=== PATIENT | female | born 1985 | race Caucasian/White ===

== ENCOUNTER 2016-07-25 04:20 | Emergency (ER) | payer MEDICAID ==
[~2016-07-25] VITALS: Ht 162.6 cm; Wt 90.7 kg
[2016-07-25 04:28] VITALS: BP 158/103
--- NOTE | 2016-07-25 04:40 | NUR ---
PATIENT AMBULATED TO ER BED 05
--- NOTE | 2016-07-25 04:45 | NUR ---
pt states rt back lower molar broke this am - she heard something crack hx of htn . PT DENIES N/V/D; SKIN IS PINK/WARM/DRY; AAOX4 WITH EVEN AND STEADY GAIT; LUNGS CLEAR BL; HR EVEN AND REGULAR; PT DENIES ANY FEVER, CP, SOB, OR COUGH AT THIS TIME; PATIENT STATES PAIN OF 10/10 AT THIS TIME; VSS; PATIENT POSITIONED FOR COMFORT; HOB ELEVATED; BEDRAILS UP X2; BED DOWN. ER MD MADE AWARE OF PT STATUS.
[2016-07-25] MEDS ORDERED: KETOROLAC 60 MG/2 ML VIAL IM ONE (04:50)
[2016-07-25] MEDS ORDERED: LIDOCAINE VISCOUS 2% 20 ML UDC PO ONE (04:50)
[2016-07-25] MEDS ORDERED: AMOXICILLIN 500 MG CAP PO ONE (04:50)
--- NOTE | 2016-07-25 04:50 | NUR ---
dr mcbride at bedside
--- NOTE | 2016-07-25 05:20 | NUR ---
Patient discharged with v/s stable. Written and verbal after care instructions given and explained. Patient alert, oriented and verbalized understanding of instructions. Ambulatory with steady gait. All questions addressed prior to discharge. ID band removed. Patient advised to follow up with PMD. Rx of motrin, tylenol with codeine, amoxicillin given. Patient educated on indication of medication including possible reaction and side effects. Opportunity to ask questions provided and answered.
[2016-07-25 05:23] VITALS: BP 154/96
== END 2016-07-25 05:23 | disposition home or self-care (01) ==
LOC: MED 04:20
DX: K04.7 Periapical abscess without sinus (principal); I10 Essential (primary) hypertension
CPT/HCPCS: 96372; 99283; J1885

== ENCOUNTER 2016-09-03 19:29 | Emergency (ER) | payer MEDICAID ==
[~2016-09-03] VITALS: Ht 162.6 cm; Wt 97.7 kg
[2016-09-03 20:13] VITALS: BP 138/96
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
--- NOTE | 2016-09-03 21:21 | NUR ---
TO ER BED 7
[2016-09-03] MEDS ORDERED: HYDROcodone/APAP 5/325 MG 1 TAB TAB PO ONE (21:25)
--- NOTE | 2016-09-03 22:14 | NUR ---
PT AWATING FOR RESULTS. NO S/S OF DISTRESS NOTED AT THE MOMENT.
--- NOTE | 2016-09-03 23:05 | NUR ---
PT STABLE, VSS. SINGED AMA, REFUSED TO BE ADMITTED TO HOSP AFTER SPEAKING WITH DR ROCK ABOUT RESULTS.
[2016-09-03] MEDS ORDERED: BACITRACIN OINT 500 UNITS/GM PKT TP ONE (23:15)
--- NOTE | 2016-09-03 23:18 | NUR ---
Patient does not wish to proceed with medical care recommended by SH[facility]. Patient given information related to possible complications, up to and including , which could occur as a result of leaving hospital at this time. Patient verbalizes understanding of risks involved leaving against medical advice. Patient has signed AMA form.
[2016-09-03 23:19] VITALS: BP 125/86
--- NOTE | 2016-09-03 23:19 | NUR ---
Patient discharged with v/s stable. Written and verbal after care instructions given and explained. Patient alert, oriented and verbalized understanding of instructions. Ambulatory with steady gait. All questions addressed prior to discharge. ID band removed. Patient advised to follow up with PMD TOMORROW OR RETURN TO ER IF CONDITION WORSENS. Rx of NORCO given. Patient educated on indication of medication including possible reaction and side effects. Opportunity to ask questions provided and answered.
== END 2016-09-03 23:19 | disposition left against medical advice (07) ==
LOC: MED 19:29
DX: S32.302A Unspecified fracture of left ilium, initial encounter for closed fracture (principal); S31.114D Laceration without foreign body of abdominal wall, left lower quadrant without penetration into peritoneal cavity, subsequent encounter; L02.211 Cutaneous abscess of abdominal wall; I10 Essential (primary) hypertension; X02 Exposure to controlled fire in building or structure; V19.3XXD Pedal cyclist (driver) (passenger) injured in unspecified nontraffic accident, subsequent encounter; Y92.89 Other specified places as the place of occurrence of the external cause; Y99.8 Other external cause status

== ENCOUNTER 2016-12-08 00:21 | Emergency (ER) | payer MEDICAID ==
[~2016-12-08] VITALS: Ht 162.6 cm; Wt 95.3 kg
[2016-12-08 00:27] VITALS: BP 145/90
--- NOTE | 2016-12-08 00:46 | NUR ---
Patient going to XRAY via wheelchair per tech--from lobby.
--- NOTE | 2016-12-08 00:55 | NUR ---
Patient back from XRAY via wheelchair per tech--to lobby.
--- NOTE | 2016-12-08 01:12 | NUR ---
PATIENT LEFT WITHOUT BEING SEEN BY DR. RAY. NO FURTHER CARE PROVIDED FOR PATIENT.
== END 2016-12-08 01:12 | disposition left against medical advice (07) ==
LOC: MED 00:21
DX: S90.852A Superficial foreign body, left foot, initial encounter (principal); Z53.21 Procedure and treatment not carried out due to patient leaving prior to being seen by health care provider; X58.XXXA Exposure to other specified factors, initial encounter; Y93.89 Activity, other specified; Y92.89 Other specified places as the place of occurrence of the external cause; Y99.8 Other external cause status
CPT/HCPCS: 73630

== ENCOUNTER 2017-02-25 01:35 | Emergency (ER) | payer MEDICAID ==
[~2017-02-25] VITALS: Ht 162.6 cm; Wt 90.7 kg
[2017-02-25 01:42] VITALS: BP 152/112
--- NOTE | 2017-02-25 01:48 | NUR ---
PT TAKEN TO BED 5
--- NOTE | 2017-02-25 01:59 | NUR ---
Dr. Byrnes evaluating patient at bedside.
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
[2017-02-25] MEDS ORDERED: KETOROLAC 60 MG/2 ML VIAL IM ONE (02:05)
[2017-02-25 02:46] VITALS: BP 152/112
--- NOTE | 2017-02-25 02:50 | NUR ---
Patient discharged with v/s stable. Written and verbal after care instructions given and explained. Patient alert, oriented and verbalized understanding of instructions. Ambulatory with CRUTCHES. All questions addressed prior to discharge. ID band removed. Patient advised to follow up with PMD. Rx of MOTRIN 800MG 1TAB PO TID, TRAMADOL HCL 50MG ONE TAB PO Q6 PRN PAIN given. Patient educated on indication of medication including possible reaction and side effects. Opportunity to ask questions provided and answered.
== END 2017-02-25 02:50 | disposition home or self-care (01) ==
LOC: MED 01:35
DX: M54.32 Sciatica, left side (principal); I10 Essential (primary) hypertension
CPT/HCPCS: 73502; 81025; 96372; 99284; J1885

== ENCOUNTER 2017-04-10 03:35 | Emergency (ER) | payer MEDICAID ==
[~2017-04-10] VITALS: Ht 162.6 cm; Wt 90.7 kg
[2017-04-10 03:41] VITALS: BP 149/100
[2017-04-10] MEDS ORDERED: TRAM50TA1 PO (03:42)
[2017-04-10] MEDS ORDERED: IBUP-2213 PO (03:42)
[2017-04-10] MEDS ORDERED: KETOROLAC 60 MG/2 ML VIAL IM ONE (04:20)
[2017-04-10 05:11] VITALS: BP 130/80
== END 2017-04-10 05:11 | disposition home or self-care (01) ==
LOC: MED 03:35
DX: M25.511 Pain in right shoulder (principal); I10 Essential (primary) hypertension; Z79.899 Other long term (current) drug therapy
CPT/HCPCS: 73030; 96372; 99284; J1885; Q0092

== ENCOUNTER 2017-08-02 03:00 | Emergency (ER) | payer MEDICAID ==
[~2017-08-02] VITALS: Ht 162.6 cm; Wt 90.7 kg
[~2017-08-02 03:00] MED LIST: IBUP-2213 PO; TRAM50TA1 PO
[2017-08-02 03:05] VITALS: BP 160/111
--- NOTE | 2017-08-02 03:10 | NUR ---
TO ER BED 2
--- NOTE | 2017-08-02 03:20 | NUR ---
PATIENT PRESENTS TO ED WITH C/O TOOTHACHE . PT DENIES N/V/D; SKIN IS PINK/WARM/DRY; AAOX4 WITH EVEN AND STEADY GAIT; LUNGS CLEAR BL; HR EVEN AND REGULAR; PT DENIES ANY FEVER, CP, SOB, OR COUGH AT THIS TIME; PATIENT STATES PAIN OF 10/10 AT THIS TIME; VSS; PATIENT POSITIONED FOR COMFORT; HOB ELEVATED; BEDRAILS UP X2; BED DOWN. ER MD MADE AWARE OF PT STATUS.
[2017-08-02] MEDS ORDERED: BUPIVACAINE-MPF 0.5% 10 ML VIAL INJ ONE (03:25)
--- NOTE | 2017-08-02 04:00 | NUR ---
DR JAIN AT BEDSIDE
--- NOTE | 2017-08-02 04:05 | NUR ---
Patient discharged with v/s stable. Written and verbal after care instructions given and explained. Patient alert, oriented and verbalized understanding of instructions. Ambulatory with steady gait. All questions addressed prior to discharge. ID band removed. Patient advised to follow up with PMD. Rx of AMOXICILLIN, NAPROSYN AND TYLENOL WITH CODEINE given. Patient educated on indication of medication including possible reaction and side effects. Opportunity to ask questions provided and answered.
[2017-08-02 04:21] VITALS: BP 128/89
== END 2017-08-02 04:05 | disposition home or self-care (01) ==
LOC: MED 03:00
DX: K08.89 Other specified disorders of teeth and supporting structures (principal)
CPT/HCPCS: 64400; 99284; J3490

== ENCOUNTER 2018-01-25 07:32 | Emergency (ER) | payer MEDICAID ==
[~2018-01-25] VITALS: Ht 162.6 cm; Wt 81.6 kg
[2018-01-25 07:42] VITALS: BP 145/95
--- NOTE | 2018-01-25 07:55 | NUR ---
32 YO F BIB SELF W/ C/O THROAT PAIN X 1 WK. PT PRESENTS W/ MUFFLED VOICE NOTED. REPORTS THAT SHE EXPERIENCES SOB IF LAYS FLAT ON HER BACK. NO DROOLING NOTED, FULL SPEECH, SPEAKING IN COMPLETE AND APPROPRIATE SENTENCES. NO ACCESSORY MUSCLE USE NOTED AT THIS TIME. RR EVEN AND UNLABORED, LUNGS CLEAR. NO WHITE PATCHES NOTED TO THE BACK OF THE THROAT AT THIS TIME. PT REPORTS FEELING VERY HOT, SKIN APPEARS SLIGHTLY DIAPHORETIC AROUND THE HAIRLINE. AAOX4, GCS 15, CMS INTACT. AMBULATORY W/ STEADY GAIT. ER MD NOTIFIED. PT NEEDS MET, SAFETY PRECAUTIONS IN PLACE. WILL CONTINUE TO MONITOR. PT WAS SEEN AT [facility] ([place] YESTERDAY DX TONSILITIS RX AUGMENTIN
[2018-01-25] MEDS ORDERED: ONDANSETRON 4 MG/2 ML VIAL IVP ONE (08:30)
[2018-01-25] MEDS ORDERED: MORPHINE SULFATE 4 MG/ML SYR IVP ONE (08:30)
[2018-01-25] MEDS ORDERED: CLINDAMYCIN 900 MG in DEXTROSE 5% 100 ML IV ONE (08:30)
[2018-01-25] MEDS ORDERED: DEXAMETHASONE 10 MG/ML VIAL IVP ONE (08:30)
[2018-01-25] MEDS ORDERED: NACL 0.9% 2,000 ML IV ONE (08:30)
[2018-01-25] MEDS ORDERED: CLINDAMYCIN 900 MG/6 ML VIAL IV ONE (08:50)
--- NOTE | 2018-01-25 09:05 | NUR ---
PT AMBULATES TO THE RESTROOM AT THIS TIME W/ EVEN STEADY GAIT
--- NOTE | 2018-01-25 09:15 | NUR ---
PT AMBULATES BACK FROM RESTROOM AT THIS TIME W/ EVEN STEADY GAIT, PT REPORTS THAT SHE DROPPED HER URINE SAMPLE ON THE FLOOR.
[2018-01-25 09:39] LABS: BASOPHILS % (AUTO) 0.3 % (0.0-2.0); EOSINOPHILS # (AUTO) 0.2 K/uL (0-0.4); EOSINOPHILS % (AUTO) 1.4 % (0.0-4.0); HEMATOCRIT 38.3 % (36-48); LYMPHOCYTES # (AUTO) 1.2 K/uL (2.5-16.5); LYMPHOCYTES % (AUTO) 9.8 % (20.5-51.1); MEAN CORPUSCULAR HEMOGLOBIN 25 pg (27-31); MEAN CORPUSCULAR HGB CONC 31 g/dL (33-37); MEAN CORPUSCULAR VOLUME 79.2 fL (80-94); MONOCYTES # (AUTO) 1.3 K/uL (0.8-1.0); MONOCYTES % (AUTO) 10.2 % (1.7-9.3); NEUTROPHILS # (AUTO) 9.7 K/uL (1.8-7.7); NEUTROPHILS % (AUTO) 78.3 % (42.2-75.2); PLATELET COUNT (AUTO) 292 K/uL (140-450); RED BLOOD CELL COUNT(AUTO) 4.84 MIL/uL (4.20-5.40); RED CELL DISTRIBUTION WIDTH 17.5 % (11.6-13.7); WHITE BLOOD COUNT (AUTO) 12.4 K/uL (4.8-10.8)
[2018-01-25 09:46] LABS: CARBON DIOXIDE 28.4 mmol/L (21-32); CREATININE 0.6 mg/dL (0.6-1.3); POTASSIUM 3.4 mmol/L (3.5-5.1)
[2018-01-25 09:52] LABS: ALBUMIN 3.5 g/dL (3.4-5.0); TOTAL BILIRUBIN 1.1 mg/dL (0.0-1.0)
--- NOTE | 2018-01-25 09:56 | NUR ---
PT RESTING ON [facility] AT THIS TIME W/ VSS, RR EVEN AND UNLABORED. SAFETY PRECAUTIONS IN PLACE. WILL CONTINUE TO MONITOR.
--- NOTE | 2018-01-25 10:50 | NUR ---
PT UP FOR D/C AT THIS TIME. NO D/C PAPERWORK AVAILABLE AT THIS TIME.
[2018-01-25 12:05] VITALS: BP 147/86
--- NOTE | 2018-01-25 12:06 | NUR ---
Patient discharged with v/s stable. Written and verbal after care instructions given and explained. Patient alert, oriented and verbalized understanding of instructions. Ambulatory with steady gait. All questions addressed prior to discharge. ID band removed. Patient advised to follow up with PMD. Rx of CLINDAMYCIN/NORCO given. Patient educated on indication of medication including possible reaction and side effects. Opportunity to ask questions provided and answered.
== END 2018-01-25 12:06 | disposition home or self-care (01) ==
LOC: MED 07:32
DX: R07.0 Pain in throat (principal); I10 Essential (primary) hypertension; Z79.899 Other long term (current) drug therapy
CPT/HCPCS: 36415; 80053; 85025; 96365; 96366; 96375; 99284; J1100; J2270; J2405; J3490; J7030; 99281; 99283

== ENCOUNTER 2019-05-30 00:30 | Emergency (ER) | payer SELFPAY ==
[~2019-05-30] VITALS: Ht 162.6 cm; Wt 81.6 kg
[2019-05-30 00:40] VITALS: BP 144/100
--- NOTE | 2019-05-30 00:43 | NUR ---
TO LOBBY A/W BED AMBULATORY
--- NOTE | 2019-05-30 02:16 | NUR ---
Pt ambulated to bed 1.
--- NOTE | 2019-05-30 02:34 | NUR ---
33 Y/O FEMALE PRESENTS TO ED, C/O HEADACHE 12/10. PT STATES BEING AT HOME WATCHING TV 1 HOUR PRIOR COMING TO ED, PT STARTED FEELING HEADACHE ALONG WITH WORSENING NASAL CONGESTION. NO MEDICATIONS TAKEN PRIOR COMING TO ED. PT STATES HAVING PAIN WHILE BREATHING. LUNG SOUNDS BILAT CLEAR. NO SOB/DIFFICULTY BREATHING NOTED. PT VSS. ERMD AWARE. WILL CONTINUE TO MONITOR.
[2019-05-30] MEDS ORDERED: diphenhydrAMINE 50 MG/ML VIAL IM ONE (02:45)
[2019-05-30 03:30] VITALS: BP 141/99
--- NOTE | 2019-05-30 03:30 | NUR ---
PT DISCHARGED WITH PAPERWORK. EDUCATED PT REGARDING MEDICATION AND D/C DIAGNOSIS. PT VERBALIZED UNDERSTANDING. TOLD PT TO FOLLOW UP WITH PCP AND WHEN TO RETURN TO ED. PT AT STABLE CONDITION. ALL QUESTIONS ANSWERED.
== END 2019-05-30 03:30 | disposition home or self-care (01) ==
LOC: MED 00:30
DX: F45.8 Other somatoform disorders (principal); J30.2 Other seasonal allergic rhinitis; I10 Essential (primary) hypertension; Z79.899 Other long term (current) drug therapy
CPT/HCPCS: 96372; 99283; J1200

== ENCOUNTER 2020-09-14 16:33 | Emergency (ER) | payer MEDICAID ==
[~2020-09-14] VITALS: Ht 162.6 cm; Wt 90.7 kg
[2020-09-14 16:58] VITALS: BP 145/85
--- NOTE | 2020-09-14 17:20 | NUR ---
PT AMBULATED TO BED 9.
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
[2020-09-14] MEDS ORDERED: KETOROLAC 30 MG/ML VIAL IM ONE (18:00)
[2020-09-14] MEDS ORDERED: NAPR-1559 PO (18:14)
[2020-09-14] MEDS ORDERED: CEPH500T PO (18:14)
[2020-09-14 18:55] VITALS: BP 145/85
--- NOTE | 2020-09-14 18:55 | NUR ---
Patient discharged with v/s stable. Written and verbal after care instructions given and explained. Patient alert, oriented and verbalized understanding of instructions. Ambulatory with steady gait. All questions addressed prior to discharge. ID band removed. Patient advised to follow up with PMD. Rx of NAPROXEN, CEPHALEXIN given. Patient educated on indication of medication including possible reaction and side effects. Opportunity to ask questions provided and answered.
== END 2020-09-14 18:55 | disposition home or self-care (01) ==
LOC: MED 16:33
DX: L03.031 Cellulitis of right toe (principal); I10 Essential (primary) hypertension; Z79.899 Other long term (current) drug therapy
CPT/HCPCS: 96372; 99283; J1885

== ENCOUNTER 2020-11-15 03:11 | Emergency (ER) | payer MEDICAID ==
[~2020-11-15] VITALS: Ht 165.1 cm; Wt 90.7 kg
[~2020-11-15 03:11] MED LIST changes: +CEPH500T PO; +NAPR-1559 PO
[2020-11-15 03:17] VITALS: BP 150/70
--- NOTE | 2020-11-15 03:17 | NUR ---
TO BED AMBULATORY
--- NOTE | 2020-11-15 03:42 | NUR ---
PT ASSESSED AND EVALUATED PT. NO NURSING INTERVENTIONS NEEDED AT THIS TIME. PT REMAINS STABLE.
--- NOTE | 2020-11-15 03:42 | NUR ---
AT BEDSIDE EVALUATING PT.
[2020-11-15] MEDS ORDERED: ACET-50 PO (03:49)
[2020-11-15 03:54] VITALS: BP 150/70
--- NOTE | 2020-11-15 03:54 | NUR ---
Patient discharged with v/s stable. Written and verbal after care instructions given and explained. Patient alert, oriented and verbalized understanding of instructions. Ambulatory with steady gait. All questions addressed prior to discharge. ID band removed. Patient advised to follow up with PMD. Rx of CORICIDIN given. Patient educated on indication of medication including possible reaction and side effects. Opportunity to ask questions provided and answered.
== END 2020-11-15 03:54 | disposition home or self-care (01) ==
LOC: MED 03:11
DX: J06.9 Acute upper respiratory infection, unspecified (principal); I10 Essential (primary) hypertension; F17.200 Nicotine dependence, unspecified, uncomplicated; Z90.49 Acquired absence of other specified parts of digestive tract; Z98.890 Other specified postprocedural states; Z79.899 Other long term (current) drug therapy
CPT/HCPCS: 99282

== ENCOUNTER 2021-01-11 15:07 | Emergency (ER) | payer MEDICAID ==
[~2021-01-11] VITALS: Ht 162.6 cm; Wt 90.7 kg
[~2021-01-11 15:07] MED LIST changes: +ACET-50 PO
[2021-01-11 15:43] VITALS: BP 139/102
[2021-01-11 17:09] LABS: APPEARANCE,URINE CLEAR (CLEAR); BILIRUBIN,URINE 1+ (NEGATIVE); BLOOD, URINE NEGATIVE (NEGATIVE); COLOR,URINE YELLOW (YELLOW); LEUKOCYTE ESTERASE ,URINE NEGATIVE (NEGATIVE); NITRITE, URINE NEGATIVE (NEGATIVE); PH,URINE 5.5 (5.0-9.0); UGLUCOSE NEGATIVE (NEGATIVE)
[2021-01-11] MEDS ORDERED: CEFTRIAXONE IM ONE (17:25)
[2021-01-11] MEDS ORDERED: LIDOCAINE MPF 1% IM ONE (17:25)
[2021-01-11] MEDS ORDERED: DOXY100C9 PO (17:27)
[2021-01-11] MEDS ORDERED: LIDOCAINE MPF 1% 5 ML ONE (17:35)
[2021-01-11] MEDS ORDERED: cefTRIAXone 500 MG VIAL ONE (17:35)
== END 2021-01-11 17:42 | disposition home or self-care (01) ==
LOC: MED 15:07
DX: R30.0 Dysuria (principal); I10 Essential (primary) hypertension; Z20.2 Contact with and (suspected) exposure to infections with a predominantly sexual mode of transmission; Z88.1 Allergy status to other antibiotic agents
CPT/HCPCS: 36415; 81003; 81025; 87491; 96372; 99283; J0696; J2001

== ENCOUNTER 2021-03-11 16:57 | Emergency (ER) | payer MEDICAID ==
[~2021-03-11] VITALS: Ht 162.6 cm; Wt 99.3 kg
[~2021-03-11 16:57] MED LIST changes: +VIB100 PO
[2021-03-11 17:01] VITALS: BP 151/105
--- NOTE | 2021-03-11 17:02 | NUR ---
PT TO AWAIT IN LOBBY
[2021-03-11] MEDS ORDERED: SULF-59 PO (17:36)
[2021-03-11] MEDS ORDERED: PYR100 PO (17:36)
[2021-03-11] MEDS ORDERED: ACET-10509 PO (17:36)
--- NOTE | 2021-03-11 17:40 | NUR ---
NO NURSING INTERVENTIONS IMPLEMENTED
[2021-03-11 17:45] VITALS: BP 151/105
--- NOTE | 2021-03-11 17:45 | NUR ---
Patient discharged with v/s stable. Written and verbal after care instructions given and explained. Patient alert, oriented and verbalized understanding of instructions. Ambulatory with steady gait. All questions addressed prior to discharge. ID band removed. Patient advised to follow up with PMD. Rx of TYLENOL, PYRIDIUM, AND BACTRIM given. Patient educated on indication of medication including possible reaction and side effects. Opportunity to ask questions provided and answered.
== END 2021-03-11 17:45 | disposition home or self-care (01) ==
LOC: MED 16:57
DX: N39.0 Urinary tract infection, site not specified (principal); R35.0 Frequency of micturition; R30.0 Dysuria; I10 Essential (primary) hypertension; Z79.899 Other long term (current) drug therapy
CPT/HCPCS: 81002; 81025; 99283

== ENCOUNTER 2021-07-03 00:05 | Emergency (ER) | payer MEDICAID ==
[~2021-07-03] VITALS: Ht 162.6 cm; Wt 81.6 kg
[~2021-07-03 00:05] MED LIST changes: +ACET-10509 PO; +PYR100 PO; +SULF-59 PO
[2021-07-03] MEDS ORDERED: cefTRIAXone 1,000 MG in LIDOCAINE MPF 1% 2.1 ML IM ONE (00:40)
[2021-07-03 00:43] VITALS: BP 153/108
--- NOTE | 2021-07-03 00:45 | NUR ---
EXAMINED BY DR RODRÍGUEZ
--- NOTE | 2021-07-03 00:50 | NUR ---
TO CHAIR A FOLLOWING TRIAGE
[2021-07-03] MEDS ORDERED: AMOX-1000 PO (01:11)
[2021-07-03 01:14] VITALS: BP 153/108
[2021-07-03] MEDS ORDERED: LIDOCAINE MPF 1% 5 ML ONE (01:18)
[2021-07-03] MEDS ORDERED: cefTRIAXone 1,000 MG VIAL ONE (01:18)
== END 2021-07-03 01:14 | disposition home or self-care (01) ==
LOC: MED 00:05
DX: S61.451A Open bite of right hand, initial encounter (principal); I10 Essential (primary) hypertension; F17.200 Nicotine dependence, unspecified, uncomplicated; Z71.6 Tobacco abuse counseling; Z90.49 Acquired absence of other specified parts of digestive tract; Z98.890 Other specified postprocedural states; Z79.2 Long term (current) use of antibiotics; Z79.899 Other long term (current) drug therapy; Z79.1 Long term (current) use of non-steroidal anti-inflammatories (NSAID); Z79.891 Long term (current) use of opiate analgesic; W50.3XXA Accidental bite by another person, initial encounter; Y93.89 Activity, other specified; Y92.89 Other specified places as the place of occurrence of the external cause; Y99.8 Other external cause status
CPT/HCPCS: 90471; 90715; 96372; 99284; J0696; J2001

== ENCOUNTER 2021-12-22 01:30 | Emergency (ER) | payer MEDICAID ==
[~2021-12-22] VITALS: Ht 162.6 cm; Wt 94.8 kg
[~2021-12-22 01:30] MED LIST changes: +AMOX-1000 PO
[2021-12-22 01:35] VITALS: BP 153/118
--- NOTE | 2021-12-22 01:45 | NUR ---
Harvinder sarkar in [facility] - 12/22/21 at 0145 by MEDGJ PT AMBULATED TO BED #7
--- NOTE | 2021-12-22 01:45 | NUR ---
Patient ambulated to bed 7.
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
--- NOTE | 2021-12-22 02:18 | NUR ---
[place] [employer] AT BEDSIDE Addendum: 12/22/21 at 0233 by COURTNEYGJ [place] [employer]
--- NOTE | 2021-12-22 02:30 | NUR ---
[facility] REF #[id number]
--- NOTE | 2021-12-22 02:40 | NUR ---
DR GIL AT BEDSIDE
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
[2021-12-22] MEDS ORDERED: CIPR7.5S OT (02:52)
[2021-12-22 03:15] VITALS: BP 140/105
--- NOTE | 2021-12-22 03:15 | NUR ---
Patient discharged with v/s stable. Written and verbal after care instructions given EARDRUM RUPTURE and explained. Patient alert, oriented and verbalized understanding of instructions. Ambulatory with steady gait. All questions addressed prior to discharge. ID band removed. Patient advised to follow up with PMD. Rx of CIPROFLOXACIN given.
--- NOTE | 2021-12-22 03:24 | NUR ---
The patient's care was reviewed and supervised by Merlyn Rawls RN.
== END 2021-12-22 03:15 | disposition home or self-care (01) ==
LOC: MED 01:30
DX: H72.92 Unspecified perforation of tympanic membrane, left ear (principal); I10 Essential (primary) hypertension; Z72.89 Other problems related to lifestyle
CPT/HCPCS: 99283

== ENCOUNTER 2022-01-15 01:55 | Emergency (ER) | payer MEDICAID ==
[~2022-01-15] VITALS: Ht 162.6 cm; Wt 93.4 kg
[2022-01-15 01:55] VITALS: BP 171/103
[~2022-01-15 01:55] MED LIST changes: +CIPR7.5S OT
[2022-01-15] MEDS ORDERED: KETOROLAC 60 MG/2 ML VIAL IM ONE (02:00)
[2022-01-15] MEDS ORDERED: CYCLOBENZAPRINE 10 MG TAB PO ONE (02:00)
--- NOTE | 2022-01-15 02:00 | NUR ---
Patient being evaluated by physician in triage
[2022-01-15] MEDS ORDERED: CYCL10TA33 PO (02:02)
--- NOTE | 2022-01-15 02:02 | NUR ---
AMBULATED TO BED WITH RN
[2022-01-15] MEDS ORDERED: KETO10TA2 PO (02:04)
[2022-01-15 03:00] VITALS: BP 171/103
--- NOTE | 2022-01-15 03:00 | NUR ---
0300- Patient discharged with v/s stable. Written and verbal after care instructions given and explained. Patient alert, oriented and verbalized understanding of instructions. Ambulatory with steady gait. All questions addressed prior to discharge. ID band removed. Patient advised to follow up with PMD. Rx of CYCLOBEZAPRIN AND KETORALAC TROMETHAMINE given. Opportunity to ask questions provided and answered.
== END 2022-01-15 03:00 | disposition home or self-care (01) ==
LOC: MED 01:55
DX: S16.1XXA Strain of muscle, fascia and tendon at neck level, initial encounter (principal); I10 Essential (primary) hypertension; X58.XXXA Exposure to other specified factors, initial encounter; Y93.89 Activity, other specified; Y92.89 Other specified places as the place of occurrence of the external cause; Y99.8 Other external cause status
CPT/HCPCS: 81002; 81025; 96372; 99283; J1885

== ENCOUNTER 2022-07-12 23:20 | Emergency (ER) | payer MEDICAID ==
[~2022-07-12] VITALS: Ht 162.6 cm; Wt 86.2 kg
[~2022-07-12 23:20] MED LIST changes: +CYCL10TA33 PO; +KETO10TA2 PO; +TRAM-748 PO; -TRAM50TA1 PO
[2022-07-12 23:30] VITALS: BP 160/106
--- NOTE | 2022-07-12 23:51 | NUR ---
PT TAKEN TO RADIOLOGY
--- NOTE | 2022-07-12 23:58 | NUR ---
PT RETURN FROM RADIOLOGY
[2022-07-13] MEDS ORDERED: HYDROcodone/APAP 5/325 MG 1 TAB TAB PO ONE (00:20)
[2022-07-13] MEDS ORDERED: ACET-8905 PO (00:29)
--- NOTE | 2022-07-13 00:35 | NUR ---
Patient resting in bed, A/Ox4, chest rise and fall symmetrical, no s/s of distress, patient on monitor
[2022-07-13 01:18] VITALS: BP 132/85
== END 2022-07-13 01:18 | disposition home or self-care (01) ==
LOC: MED 23:20
DX: S62.655A Nondisplaced fracture of middle phalanx of left ring finger, initial encounter for closed fracture (principal); I10 Essential (primary) hypertension; Z79.899 Other long term (current) drug therapy; W22.8XXA Striking against or struck by other objects, initial encounter; Y93.89 Activity, other specified; Y92.89 Other specified places as the place of occurrence of the external cause; Y99.8 Other external cause status
CPT/HCPCS: 73140; 99283

== ENCOUNTER 2022-07-16 23:23 | Emergency (ER) | payer MEDICAID ==
[~2022-07-16] VITALS: Ht 162.6 cm; Wt 86.2 kg
[~2022-07-16 23:23] MED LIST changes: +ACET-8905 PO
[2022-07-16 23:25] VITALS: BP 160/98
--- NOTE | 2022-07-16 23:28 | NUR ---
to lobby a/w bed ambulatory
[2022-07-17] MEDS ORDERED: MORPHINE SULFATE 4 MG/ML SYR IM ONE (00:15)
[2022-07-17 00:33] VITALS: BP 138/79
--- NOTE | 2022-07-17 00:33 | NUR ---
Patient discharged with v/s stable. Written and verbal after care instructions given and explained. Patient verbalized understanding. Ambulatory with steady gait. All questions addressed prior to discharge. Advised to follow up with PMD.
== END 2022-07-17 00:33 | disposition home or self-care (01) ==
LOC: MED 23:23
DX: S62.605A Fracture of unspecified phalanx of left ring finger, initial encounter for closed fracture (principal); I10 Essential (primary) hypertension; Z79.899 Other long term (current) drug therapy; X58.XXXA Exposure to other specified factors, initial encounter; Y93.89 Activity, other specified; Y92.89 Other specified places as the place of occurrence of the external cause; Y99.8 Other external cause status
CPT/HCPCS: 96372; 99283; J2270

== ENCOUNTER 2022-10-12 01:39 | Emergency (ER) | payer MEDICAID ==
[~2022-10-12] VITALS: Ht 162.6 cm; Wt 90.7 kg
[2022-10-12 01:49] VITALS: BP 168/113
--- NOTE | 2022-10-12 02:41 | NUR ---
ASSUMED CARE C/O CP ,PER REPORT STOPPED HEROI 4 DAYS AGO
[2022-10-12 03:07] LABS: BASOPHILS # (AUTO) 0.1 K/uL (0.00-0.22); BASOPHILS % (AUTO) 0.5 % (0.0-2.0); EOSINOPHILS # (AUTO) 0.1 K/uL (0-0.4); EOSINOPHILS % (AUTO) 1.1 % (0.0-4.0); HEMATOCRIT 34.8 % (36-48); HEMOGLOBIN 10.9 g/dL (12.0-16.0); LYMPHOCYTES # (AUTO) 2.3 K/uL (2.5-16.5); MEAN CORPUSCULAR HEMOGLOBIN 23 pg (27-31); MEAN CORPUSCULAR HGB CONC 31 g/dL (33-37); MEAN CORPUSCULAR VOLUME 73.5 fL (80-94); MONOCYTES % (AUTO) 7.8 % (1.7-9.3); NEUTROPHILS # (AUTO) 9.4 K/uL (1.8-7.7); NEUTROPHILS % (AUTO) 72.6 % (42.2-75.2); PLATELET COUNT (AUTO) 363 K/uL (140-450); RED BLOOD CELL COUNT(AUTO) 4.73 MIL/uL (4.20-5.40); RED CELL DISTRIBUTION WIDTH 18.1 % (11.6-13.7); WHITE BLOOD COUNT (AUTO) 12.9 K/uL (4.8-10.8)
[2022-10-12] MEDS ORDERED: LORazepam 1 MG TAB PO ONE (03:25)
[2022-10-12 03:28] LABS: ALBUMIN 3.5 g/dL (3.4-5.0); ANION GAP 10.6 (8-16); ASPARTATE AMINOTRANSFERASE 18 U/L (15-37); CARBON DIOXIDE 29.2 mmol/L (21-32); CHLORIDE 103 mmol/L (98-107); CREATININE 0.8 mg/dL (0.6-1.3); GFR ARICAN-AMERICAN 105 mL/min (>90); GLUCOSE 100 mg/dL (74-106); LIPASE 60 U/L (73-393); POTASSIUM 3.8 mmol/L (3.5-5.1); SODIUM SERUM 139 mmol/L (136-145); TOTAL BILIRUBIN 0.4 mg/dL (0.0-1.0); UREA NITROGEN, BLOOD 12 mg/dL (7-18)
[2022-10-12] MEDS ORDERED: NALO4SPR NS (04:14)
[2022-10-12 04:31] VITALS: BP 120/74
[2022-10-12] MEDS ORDERED: ATA25 PO (04:39)
--- NOTE | 2022-10-12 04:46 | NUR ---
Patient discharged with v/s stable. Written and verbal after care instructions given and explained. Patient alert, oriented and verbalized understanding of instructions. Ambulatory with steady gait. All questions addressed prior to discharge. ID band removed. Patient advised to follow up with PMD. Rx of ATARAX, NARCAN given. Patient educated on indication of medication including possible reaction and side effects. Opportunity to ask questions provided and answered.
== END 2022-10-12 04:30 | disposition home or self-care (01) ==
LOC: MED 01:39
DX: R07.9 Chest pain, unspecified (principal); I10 Essential (primary) hypertension; Z79.899 Other long term (current) drug therapy
CPT/HCPCS: 36415; 71045; 80053; 83690; 84484; 84702; 85025; 93005; 99285; Q0092

== ENCOUNTER 2023-01-28 04:55 | Emergency (ER) | payer MEDICAID ==
[~2023-01-28] VITALS: Ht 162.6 cm; Wt 90.7 kg
[~2023-01-28 04:55] MED LIST changes: +ATA25 PO; +NALO4SPR NS
[2023-01-28 05:00] VITALS: BP 153/101; PULSE 104; RESP 16; TEMP 97.5; O2SAT 100
[2023-01-28] MEDS ORDERED: ACET-10509 PO (05:29)
[2023-01-28] MEDS ORDERED: SULF-59 PO (05:29)
[2023-01-28 05:35] VITALS: BP 153/98; PULSE 100; RESP 16; TEMP 97.5; O2SAT 100
== END 2023-01-28 05:35 | disposition home or self-care (01) ==
LOC: MED 04:55
DX: S70.361A Insect bite (nonvenomous), right thigh, initial encounter (principal); L73.1 Pseudofolliculitis barbae; I10 Essential (primary) hypertension; Z98.890 Other specified postprocedural states; Z79.899 Other long term (current) drug therapy; Z79.1 Long term (current) use of non-steroidal anti-inflammatories (NSAID); Z79.2 Long term (current) use of antibiotics; W57.XXXA Bitten or stung by nonvenomous insect and other nonvenomous arthropods, initial encounter; Y92.89 Other specified places as the place of occurrence of the external cause; Y93.89 Activity, other specified; Y99.8 Other external cause status
CPT/HCPCS: 99283

== ENCOUNTER 2023-01-31 04:15 | Emergency (ER) | payer MEDICAID ==
[~2023-01-31] VITALS: Ht 162.6 cm; Wt 99.8 kg
[2023-01-31 04:24] VITALS: BP 133/95; PULSE 110; RESP 20; TEMP 96.9; O2SAT 95
[2023-01-31] MEDS ORDERED: KETOROLAC 30 MG/ML VIAL IM ONE (04:45)
[2023-01-31] MEDS ORDERED: LIDOCAINE/EPI MPF 1%1:200000 30 ML VIAL INJ ONE (05:27)
[2023-01-31] MEDS ORDERED: CEPH-588 PO (06:06)
[2023-01-31 06:24] VITALS: BP 133/95; PULSE 110; RESP 20; TEMP 96.9; O2SAT 95
== END 2023-01-31 06:23 | disposition home or self-care (01) ==
LOC: MED 04:15
DX: L02.416 Cutaneous abscess of left lower limb (principal); L03.115 Cellulitis of right lower limb; I10 Essential (primary) hypertension; Z79.899 Other long term (current) drug therapy
CPT/HCPCS: 10060; 90471; 90715; 96372; 99284; J1885; J2001

== ENCOUNTER 2023-02-02 05:58 | Emergency (ER) | payer MEDICAID ==
[~2023-02-02] VITALS: Ht 162.6 cm; Wt 99.8 kg
[~2023-02-02 05:58] MED LIST changes: +CEPH-588 PO
[2023-02-02 06:07] VITALS: BP 133/83; PULSE 88; RESP 16; TEMP 97.4; O2SAT 98
[2023-02-02] MEDS ORDERED: CHLO237L19 TP (07:04)
[2023-02-02] MEDS ORDERED: ACET-10509 PO (07:04)
[2023-02-02] MEDS ORDERED: SULF-59 PO (07:04)
[2023-02-02] MEDS ORDERED: CEPH-588 PO (07:04)
[2023-02-02 07:12] VITALS: BP 133/83; PULSE 88; RESP 16; TEMP 97.4; O2SAT 98
== END 2023-02-02 07:13 | disposition home or self-care (01) ==
LOC: MED 05:58
DX: L02.411 Cutaneous abscess of right axilla (principal); L02.415 Cutaneous abscess of right lower limb; I10 Essential (primary) hypertension; Z79.899 Other long term (current) drug therapy
CPT/HCPCS: 10061; 99284

== ENCOUNTER 2023-02-14 03:13 | Emergency (ER) | payer MEDICAID ==
[~2023-02-14] VITALS: Ht 162.6 cm; Wt 95.3 kg
[~2023-02-14 03:13] MED LIST changes: +CHLO237L19 TP
[2023-02-14 03:22] VITALS: BP 171/98; RESP 18; TEMP 97.1; O2SAT 99
[2023-02-14] MEDS ORDERED: KETOROLAC 15 MG/ML VIAL IM ONE (03:40)
[2023-02-14] MEDS ORDERED: ACETAMINOPHEN EXTRA STRENGTH 500 MG TAB PO ONE (03:40)
[2023-02-14 03:57] LABS: BASOPHILS # (AUTO) 0.1 K/uL (0.00-0.22); BASOPHILS % (AUTO) 0.9 % (0.0-2.0); EOSINOPHILS # (AUTO) 0.2 K/uL (0-0.4); EOSINOPHILS % (AUTO) 2.5 % (0.0-4.0); HEMATOCRIT 34.8 % (36-48); LYMPHOCYTES # (AUTO) 2.5 K/uL (2.5-16.5); LYMPHOCYTES % (AUTO) 30.6 % (20.5-51.1); MEAN CORPUSCULAR HEMOGLOBIN 25 pg (27-31); MEAN CORPUSCULAR HGB CONC 32 g/dL (33-37); MEAN CORPUSCULAR VOLUME 78.4 fL (80-94); MONOCYTES # (AUTO) 0.9 K/uL (0.8-1.0); MONOCYTES % (AUTO) 10.3 % (1.7-9.3); NEUTROPHILS # (AUTO) 4.6 K/uL (1.8-7.7); NEUTROPHILS % (AUTO) 55.7 % (42.2-75.2); PLATELET COUNT (AUTO) 321 K/uL (140-450); RED BLOOD CELL COUNT(AUTO) 4.43 MIL/uL (4.20-5.40); RED CELL DISTRIBUTION WIDTH 19.9 % (11.6-13.7); WHITE BLOOD COUNT (AUTO) 8.3 K/uL (4.8-10.8)
[2023-02-14 04:12] LABS: INR 0.91 (0.8-1.2); PARTIAL THROMBOPLASTIN TIME 29.9 secs (22-35.6); PROTHROMBIN TIME 9.6 secs (10.8-13.4)
[2023-02-14 04:15] LABS: ALBUMIN 3.4 g/dL (3.4-5.0); ANION GAP 8.7 (8-16); CALCIUM 8.9 mg/dL (8.5-10.1); CARBON DIOXIDE 31.3 mmol/L (21-32); CREATININE 0.9 mg/dL (0.6-1.3); TOTAL BILIRUBIN 0.2 mg/dL (0.0-1.0); TOTAL PROTEIN, SERUM 7.1 g/dL (6.4-8.2)
[2023-02-14 07:00] VITALS: BP 130/68; PULSE 83; RESP 18; TEMP 97.1; O2SAT 98
[2023-02-14] MEDS ORDERED: IBUP-2218 PO (07:32)
[2023-02-14] MEDS ORDERED: ACET-10509 PO (07:32)
== END 2023-02-14 08:12 | disposition home or self-care (01) ==
LOC: MED 03:13
DX: M25.511 Pain in right shoulder (principal); I10 Essential (primary) hypertension; Z79.899 Other long term (current) drug therapy; Z79.2 Long term (current) use of antibiotics; Z79.1 Long term (current) use of non-steroidal anti-inflammatories (NSAID)
CPT/HCPCS: 36415; 71045; 80053; 81025; 83880; 84484; 85025; 85610; 85730; 93005; 96372; 99285; J1885; Q0092

== ENCOUNTER 2023-03-06 15:07 | Emergency (ER) | payer OTHER, MEDICAID ==
[~2023-03-06] VITALS: Ht 162.6 cm; Wt 86.2 kg
[~2023-03-06 15:07] MED LIST changes: +IBUP-2218 PO
[2023-03-06 15:41] VITALS: BP 156/98; PULSE 90; RESP 20; TEMP 98; O2SAT 99
[2023-03-07] MEDS ORDERED: CEPH-588 PO (13:29)
[2023-03-07] MEDS ORDERED: SULF-59 PO (13:29)
== END 2023-03-06 17:54 | disposition left against medical advice (07) ==
LOC: MED 15:07
DX: L02.411 Cutaneous abscess of right axilla (principal); I10 Essential (primary) hypertension; Z79.899 Other long term (current) drug therapy
CPT/HCPCS: 99284

== ENCOUNTER 2023-03-07 10:30 | Emergency (ER) | payer OTHER, MEDICAID ==
[~2023-03-07] VITALS: Ht 162.6 cm; Wt 86.2 kg
[2023-03-07 10:45] VITALS: BP 131/78; PULSE 84; RESP 14; TEMP 98.7; O2SAT 96
[2023-03-07] MEDS ORDERED: LIDOCAINE MPF 1% 10 MG/ML VIAL INJ ONE (12:25)
[2023-03-07 12:34] VITALS: BP 131/78; PULSE 84; RESP 14; TEMP 98.7
[2023-03-07 12:42] VITALS: O2SAT 96
[2023-03-07] MEDS ORDERED: CEPH-588 PO (13:29)
[2023-03-07] MEDS ORDERED: SULF-59 PO (13:29)
[2023-03-07] MEDS ORDERED: KETOROLAC 30 MG/ML VIAL IM ONE (13:35)
== END 2023-03-07 13:46 | disposition home or self-care (01) ==
LOC: MED 10:30
DX: L02.411 Cutaneous abscess of right axilla (principal); L03.111 Cellulitis of right axilla; I10 Essential (primary) hypertension; Z79.899 Other long term (current) drug therapy
CPT/HCPCS: 10060; 96372; 99284; J1885; J2001

== ENCOUNTER 2023-03-10 16:04 | Emergency (ER) | payer MEDICAID, OTHER ==
[~2023-03-10] VITALS: Ht 162.6 cm; Wt 81.6 kg
[2023-03-10 16:18] VITALS: BP 144/100; PULSE 86; RESP 18; TEMP 98.1; O2SAT 98
[2023-03-10] MEDS ORDERED: IBUPROFEN 600 MG TAB PO ONE (16:30)
[2023-03-10] MEDS ORDERED: SULFAMETH/TRIMETH DS 800/160MG 1 TAB PO ONE (16:30)
[2023-03-10] MEDS ORDERED: cephALEXin 500 MG CAP PO ONE (16:30)
[2023-03-10] MEDS ORDERED: IBUP-2213 PO (16:38)
[2023-03-10 17:13] VITALS: BP 135/89; PULSE 86; RESP 18; TEMP 98.1; O2SAT 98
== END 2023-03-10 17:14 | disposition home or self-care (01) ==
LOC: MED 16:04
DX: Z48.01 Encounter for change or removal of surgical wound dressing (principal); I10 Essential (primary) hypertension; Z79.899 Other long term (current) drug therapy; Z79.1 Long term (current) use of non-steroidal anti-inflammatories (NSAID); Z79.2 Long term (current) use of antibiotics
CPT/HCPCS: 99284

== ENCOUNTER 2023-04-07 11:35 | Emergency (ER) | payer MEDICAID ==
[~2023-04-07] VITALS: Ht 162.6 cm; Wt 95.3 kg
[2023-04-07 11:51] VITALS: BP 166/103; PULSE 81; RESP 18; TEMP 97.9; O2SAT 96
[2023-04-07 12:15] VITALS: TEMP 97.9
[2023-04-07] MEDS ORDERED: ALBUTEROL 0.083% 2.5 MG/3 ML NEBU INH ONE (12:15)
[2023-04-07 12:24] VITALS: PULSE 79; RESP 16; O2SAT 96
[2023-04-07 12:39] LABS: FLU A ANTIGEN negative (NEGATIVE); FLU B ANTIGEN NEGATIVE (NEGATIVE)
[2023-04-07] MEDS ORDERED: ALBU0.0912 IH (13:27)
[2023-04-07 13:37] VITALS: BP 148/99; PULSE 78; RESP 18; O2SAT 99
== END 2023-04-07 13:35 | disposition home or self-care (01) ==
LOC: MED 11:35
DX: J06.9 Acute upper respiratory infection, unspecified (principal); Z20.822 Contact with and (suspected) exposure to COVID-19; I10 Essential (primary) hypertension; F17.200 Nicotine dependence, unspecified, uncomplicated; Z71.6 Tobacco abuse counseling; Z79.899 Other long term (current) drug therapy
CPT/HCPCS: 71045; 87426; 87804; 94640; 99284; J7613

== ENCOUNTER 2023-04-09 16:25 | Emergency (ER) | payer MEDICAID ==
[~2023-04-09 16:25] MED LIST changes: +ALBU0.0912 IH
[2023-04-10] MEDS ORDERED: ROBAC PO (00:53)
[2023-04-10] MEDS ORDERED: PRED20TA5 PO (00:53)
[2023-04-10] MEDS ORDERED: ALBU0.0912 IH (00:53)
== END 2023-04-09 17:00 | disposition left against medical advice (07) ==
LOC: MED 16:25
DX: R06.02 Shortness of breath (principal); Z53.21 Procedure and treatment not carried out due to patient leaving prior to being seen by health care provider

== ENCOUNTER 2023-04-09 23:02 | Emergency (ER) | payer OTHER, MEDICAID ==
[~2023-04-09] VITALS: Ht 162.6 cm; Wt 95.3 kg
[2023-04-09 23:05] VITALS: BP 150/88; PULSE 94; RESP 19; TEMP 98.3; O2SAT 93
[2023-04-10] MEDS ORDERED: predniSONE 20 MG TAB PO ONE (00:35)
[2023-04-10] MEDS ORDERED: ALBUTEROL SULFATE/IPRATROPIU 3 ML SOL IH ONE (00:35)
[2023-04-10] MEDS ORDERED: ACETAMIN/CODEINE 120/12MG-5ML 5 ML UDC PO ONE (00:35)
[2023-04-10 00:43] VITALS: PULSE 83; RESP 18; O2SAT 92
[2023-04-10] MEDS ORDERED: ALBU0.0912 IH (00:53)
[2023-04-10] MEDS ORDERED: PRED20TA5 PO (00:53)
[2023-04-10] MEDS ORDERED: ROBAC PO (00:53)
[2023-04-10 01:00] VITALS: BP 150/88; PULSE 83; RESP 18; TEMP 98.3; O2SAT 92
== END 2023-04-10 01:00 | disposition home or self-care (01) ==
LOC: MED 23:02
DX: J20.9 Acute bronchitis, unspecified (principal); J45.909 Unspecified asthma, uncomplicated; F17.200 Nicotine dependence, unspecified, uncomplicated; Z71.6 Tobacco abuse counseling; I10 Essential (primary) hypertension; Z98.890 Other specified postprocedural states; Z79.899 Other long term (current) drug therapy; Z79.1 Long term (current) use of non-steroidal anti-inflammatories (NSAID); Z79.2 Long term (current) use of antibiotics
CPT/HCPCS: 94640; 99283; J7512

== ENCOUNTER 2023-04-19 02:10 | Emergency (ER) | payer OTHER, MEDICAID ==
[~2023-04-19] VITALS: Ht 162.6 cm; Wt 95.3 kg
[~2023-04-19 02:10] MED LIST changes: +PRED20TA5 PO; +ROBAC PO
[2023-04-19 02:24] VITALS: BP 142/101; PULSE 78; RESP 17; TEMP 98; O2SAT 93
[2023-04-19] MEDS ORDERED: ALBUTEROL 0.083% 2.5 MG/3 ML NEBU INH ONE (02:35)
[2023-04-19] MEDS ORDERED: ALBUTEROL SULFATE/IPRATROPIU 3 ML SOL IH ONE (02:35)
[2023-04-19] MEDS ORDERED: predniSONE 20 MG TAB PO ONE (02:35)
[2023-04-19 02:46] VITALS: PULSE 85; RESP 16; O2SAT 95
[2023-04-19] MEDS ORDERED: PRED20TA5 PO (03:28)
[2023-04-19 03:35] VITALS: BP 128/80; PULSE 79; RESP 16; TEMP 36.66960; O2SAT 98
== END 2023-04-19 03:35 | disposition home or self-care (01) ==
LOC: MED 02:10
DX: R06.02 Shortness of breath (principal); R05.9 Cough, unspecified; Z79.899 Other long term (current) drug therapy
CPT/HCPCS: 94640; 99283; J7512; J7613

== ENCOUNTER 2023-05-02 18:43 | Emergency (ER) | payer OTHER, MEDICAID ==
[~2023-05-02] VITALS: Ht 162.6 cm; Wt 91.2 kg
[2023-05-02 18:45] VITALS: BP 127/87; PULSE 111; RESP 20; TEMP 97.7; O2SAT 96
[2023-05-02] MEDS ORDERED: ALBUTEROL SULFATE/IPRATROPIU 3 ML SOL IH ONE (20:40)
[2023-05-02 20:47] VITALS: PULSE 100; RESP 18; O2SAT 95
[2023-05-02] MEDS ORDERED: DEXAMETHASONE 10 MG/ML VIAL PO ONE (20:55)
[2023-05-02] MEDS ORDERED: ALBU0.0912 IH (21:03)
[2023-05-02 21:16] VITALS: BP 140/85; PULSE 85; RESP 15; TEMP 97.8; O2SAT 96
== END 2023-05-02 21:16 | disposition home or self-care (01) ==
LOC: MED 18:43
DX: J98.01 Acute bronchospasm (principal); I10 Essential (primary) hypertension; F17.200 Nicotine dependence, unspecified, uncomplicated; Z71.6 Tobacco abuse counseling; Z79.899 Other long term (current) drug therapy
CPT/HCPCS: 94640; 99283; J1100

== ENCOUNTER 2023-11-26 11:08 | Emergency (ER) | payer MEDICAID, OTHER ==
[~2023-11-26] VITALS: Ht 162.6 cm; Wt 90.7 kg
[2023-11-26 11:10] VITALS: BP 123/98; PULSE 116; RESP 26; TEMP 96.8; O2SAT 87
[2023-11-26] MEDS: ALBUTEROL SULFATE/IPRATROPIU 3 ML SOL IH ONE ×2 (11:29→12:59)
[2023-11-26 11:34] VITALS: PULSE 103; RESP 16; O2SAT 93
[2023-11-26] MEDS: DEXAMETHASONE 10 MG/ML VIAL IM ONE (11:54)
[2023-11-26 12:45] VITALS: O2SAT 90
[2023-11-26] MEDS ORDERED: PRED20TA5 PO (12:51)
[2023-11-26] MEDS ORDERED: ALBU0.0912 IH (12:51)
[2023-11-26 12:59] VITALS: PULSE 94; RESP 14; O2SAT 91
[2023-11-26 13:11] VITALS: BP 142/97; PULSE 90; RESP 16; TEMP 98; O2SAT 98
== END 2023-11-26 13:11 | disposition home or self-care (01) ==
LOC: MED 11:08
DX: J45.901 Unspecified asthma with (acute) exacerbation (principal); I10 Essential (primary) hypertension; Z79.1 Long term (current) use of non-steroidal anti-inflammatories (NSAID); Z79.2 Long term (current) use of antibiotics; Z79.899 Other long term (current) drug therapy
CPT/HCPCS: 94640; 96372; 99285; J1100

== ENCOUNTER 2024-03-21 00:10 | Emergency (ER) | payer MEDICAID ==
[~2024-03-21] VITALS: Ht 162.6 cm; Wt 99.8 kg
[~2024-03-21 00:10] MED LIST changes: -ACET-10509 PO; +ACET500T99 PO
[2024-03-21 00:21] VITALS: BP 148/77; PULSE 95; RESP 14; TEMP 98.7; O2SAT 99
[2024-03-21 00:55] VITALS: BP 148/77; PULSE 95; RESP 14; TEMP 98.7; O2SAT 99
[2024-03-21] MEDS ORDERED: ALBU0.0912 INH (01:00)
== END 2024-03-21 01:03 | disposition home or self-care (01) ==
LOC: MED 00:10
DX: J45.909 Unspecified asthma, uncomplicated (principal); Z76.0 Encounter for issue of repeat prescription; I10 Essential (primary) hypertension; Z90.49 Acquired absence of other specified parts of digestive tract; Z79.899 Other long term (current) drug therapy
CPT/HCPCS: 99283